=== PATIENT | male | born 1990 | race Hispanic/Latino ===

== ENCOUNTER 2017-08-28 08:12 | Emergency (ER) | payer OTHER ==
[2017-08-28 08:17] VITALS: BP 132/66; PULSE 70; RESP 16; TEMP 98.3; O2SAT 100
--- NOTE | 2017-08-28 09:07 | ED PDOC ---
HPI: Back Time Seen by Provider: 08/28/17 08:25 Chief Complaint (Nursing): Back Pain Chief Complaint (Provider): Back Pain History Per: Patient History/Exam Limitations: no limitations Onset/Duration Of Symptoms: Days (x2) Current Symptoms Are (Timing): Still Present Additional Complaint(s): 27 year old male presents to the emergency department with a complaint of bilateral sharp and achy lower back pain ongoing since yesterday. Patient also reported recent URI associated with chills, nasal congestion and sore throat, in which, he was prescribed Naproxen and Afrin spray from Urgent Care with negative flu/strep findings. Patient stated back pain is exacerbated when getting up and has experienced some diarrhea also. He denied any shortness of breath, chest pain, leg pain or urinary complaints. Of note, patient reported having history of "pulling out his back" due to lifting at the gym but has not worked out in the last few days. PMD: none provided Past Medical History Reviewed: Historical Data, Nursing Documentation, Vital Signs Vital Signs: Last Vital Signs Temp 98.3 F 08/28/17 08:15 Pulse 70 08/28/17 08:15 Resp 16 08/28/17 08:15 BP 132/66 08/28/17 08:15 Pulse Ox 100 08/28/17 08:15 - Medical History PMH: No Chronic Diseases - Surgical History Surgical History: No Surg Hx - Family History Family History: States: Unknown Family Hx - Social History Current smoker - smoking cessation education provided: No Ex-Smoker (has not smoked in the last 12 months): No Alcohol: Occasional Drugs: Denies - Home Medications Home Medications: Ambulatory Orders Medication Instructions Recorded Cyclobenzaprine [Cyclobenzaprine 10 mg PO TID #30 tab 08/28/17 HCl] Ketorolac Tromethamine [Toradol] 10 mg PO Q6H PRN #19 tab 08/28/17 - Allergies Allergies/Adverse Reactions: Allergies Allergy/AdvReac Type Severity Reaction Status Date / Time No Known Allergies Allergy Verified 08/28/17 08:14 Review of Systems ROS Statement: Except As Marked, All Systems Reviewed And Found Negative Constitutional: Positive for: Chills ENT: Positive for: Nose Congestion, Throat Pain Cardiovascular: Negative for: Chest Pain Respiratory: Negative for: Shortness of Breath Gastrointestinal: Positive for: Diarrhea Genitourinary Male: Negative for: Dysuria, Hematuria Musculoskeletal: Positive for: Back Pain (lower bilaterally; sharp and achy). Negative for: Leg Pain (bilateral) Physical Exam - Reviewed Nursing Documentation Reviewed: Yes Vital Signs Reviewed: Yes - Physical Exam Appears: Positive for: Non-toxic, No Acute Distress Head Exam: Positive for: ATRAUMATIC, NORMAL INSPECTION, NORMOCEPHALIC Skin: Positive for: Normal Color Eye Exam: Positive for: Normal appearance Neck: Positive for: Normal, Painless ROM, Supple. Negative for: Decreased ROM Cardiovascular/Chest: Positive for: Regular Rate, Rhythm, Chest Non Tender Respiratory: Negative for: Normal Breath Sounds, Decreased Breath Sounds, Wheezing, Respiratory Distress Gastrointestinal/Abdominal: Positive for: Soft, Tenderness (LLQ > RLQ). Negative for: Rebound Back: Positive for: Vertebral Tenderness (paralumbar), Other (L5S1: good motor distribution; 5/5 strength). Negative for: L CVA Tenderness, R CVA Tenderness, Decreased ROM Extremity: Positive for: Normal ROM (passive on rotation), Tenderness (localize to left leg with lumbar on rotation). Negative for: Pedal Edema (bilateral), Deformity (upper/lower), Other (straight-leg raise) Neurologic/Psych: Positive for: Alert (x3), Oriented. Negative for: Motor/ Sensory Deficits - Laboratory Results Result Diagrams: 08/28/17 09:20 08/28/17 09:20 - ECG O2 Sat by Pulse Oximetry: 100 (RA) Pulse Ox Interpretation: Normal Medical Decision Making Medical Decision Making: Initial Impression: Back pain Initial Plan: * CMP * Lipase * Urine dipstick * CBC * Flexeril 10mg PO * NS 1,000ml IV per 1,000mls/hr * Toradol 30mg IVP Scribe Attestation: Documented by Kaylyn Wick, acting as a scribe for Brittney Garay MD. Provider Scribe Attestation: All medical record entries made by the Scribe were at my direction and personally dictated by me. I have reviewed the chart and agree that the record accurately reflects my personal performance of the history, physical exam, medical decision making, and the department course for this patient. I have also personally directed, reviewed, and agree with the discharge instructions and disposition. CT-reviewed with patient. No obvious acute intraabdominal process. Will d/c with muscular back pain Disposition - Clinical Impression Clinical Impression: Back strain - Patient ED Disposition Is Patient to be Admitted: No Doctor Will See Patient In The: Office Counseled Patient/Family Regarding: Diagnosis, Need For Followup, Rx Given - Disposition Referrals: [facility] Cortes [Outside] Disposition: Routine/Home Disposition Time: 13:15 Condition: STABLE Prescriptions: Cyclobenzaprine [Cyclobenzaprine HCl] 10 mg PO TID #30 tab Ketorolac Tromethamine [Toradol] 10 mg PO Q6H PRN #19 tab PRN Reason: Pain, Moderate (4-7) Instructions: Muscle Strain Forms: [facility] ([place]ian), [facility] ED School/Work Excuse - POA Present On Arrival: None
[2017-08-28] MEDS: Sodium Chloride 0.9% 1,000 ML IV SCH ×2 (09:21→11:38)
[2017-08-28 09:27] LABS: BASO # 0.1 K/uL (0.0-0.2); BASO % 0.7 % (0.0-2.0); EOS # 0.3 K/uL (0.0-0.7); LYMPH # 1.5 K/uL (1.0-4.3); LYMPH % 18.5 % (20.0-40.0); MEAN CELL VOLUME 80.9 fl (80.0-94.0); MEAN CORPUSCULAR HEMOGLOBIN 26.3 pg (27.0-31.0); MEAN CORPUSCULAR HGB CONC 32.5 g/dL (33.0-37.0); MEAN PLATELET VOLUME 7.3 fl (7.2-11.7); MONO % 11.9 % (0.0-10.0); NEUT # 5.2 K/uL (1.8-7.0); NEUT % 64.9 % (50.0-75.0); NRBC % 0.1 % (0.0-0.0); RBC 5.7 Mil/uL (4.40-5.90); RED CELL DISTRIBUTION WIDTH 13.4 % (11.5-14.5); WHITE BLOOD COUNT 8.1 K/uL (4.8-10.8)
[2017-08-28 09:36] LABS: ALB/GLOB RATIO 1.3 (1.0-2.1); ALBUMIN 4.4 g/dL (3.5-5.0); ALT/SGPT 44 U/L (21-72); AST/SGOT 37 U/L (17-59); BLOOD UREA NITROGEN 19 mg/dl (9-20); CALCIUM 9.5 mg/dL (8.4-10.2); GFR AFRICAN-AMERICAN > 60; GFR NON-AFRICAN AMERICAN > 60; LIPASE 30 U/L (23-300)
[2017-08-28] MEDS ORDERED: Iohexol 300 100 ML IJ ONE (12:27)
--- NOTE | 2017-08-28 13:07 | CT ---
PROCEDURE: CT Abdomen and Pelvis with contrast HISTORY: LQ tenderness in pt. presenting w/ lumbar pain COMPARISON: None. TECHNIQUE: CT scan of the abdomen and pelvis was performed without administration of intravenous contrast. Oral contrast was not administered. Coronal and sagittal reformatted images were obtained. Contrast dose: 95 mL Omnipaque 300 Radiation dose: Total exam DLP = 566.95 mGy-cm. This CT exam was performed using one or more of the following dose reduction techniques: Automated exposure control, adjustment of the mA and/or kV according to patient size, and/or use of iterative reconstruction technique. FINDINGS: LOWER THORAX: The lung bases are clear. LIVER: There is mild hepatomegaly and diffuse fatty infiltration in the liver. No gross lesion or ductal dilatation. GALLBLADDER AND BILE DUCTS: No calcified gallstones. PANCREAS: Normal in size with homogeneous enhancement. No gross lesion or ductal dilatation. SPLEEN: Normal in size and appearance. ADRENALS: No discrete nodule. KIDNEYS AND URETERS: Both kidneys are normal in size with homogeneous enhancement. No hydronephrosis. No solid mass. VASCULATURE: No aortic aneurysm. BOWEL: The small bowel loops are normal in caliber. No bowel dilatation or wall thickening. There is moderate amount of stool in the colon. Evaluation of the bowel is limited in the absence of intravenous contrast however, there is apparent mild circumferential mural thickening in the distal descending colon. APPENDIX: Normal appendix. PERITONEUM: No free fluid. No free air. LYMPH NODES: There are prominent subcentimeter mesenteric lymph nodes in the right lower quadrant. BLADDER: Grossly normal in appearance. REPRODUCTIVE: Colon. Prostate gland is normal in size. BONES: No acute fracture. Within normal limits for the patient's age. OTHER FINDINGS: None. IMPRESSION: Evaluation of the bowel is limited in the absence of oral contrast. Allowing for this apparent mild mural thickening in the distal descending colon is nonspecific and could be related to underdistention or early nonspecific segmental colitis. Clinical correlation and follow-up is advised. Constipation. No evidence of bowel obstruction. Prominent subcentimeter mesenteric lymph nodes in the right lower quadrant which may represent nonspecific infectious/inflammatory adenitis. Mild hepatomegaly and fatty liver.
== END 2017-08-28 13:42 | disposition home or self-care (01) ==
LOC: H.ER 08:12
DX: M54.9 Dorsalgia, unspecified (principal)
CPT/HCPCS: 74177; 80053; 83690; 85025; 96361; 96374; 99283; J1885; J7040; Q9967